=== PATIENT | male | born 1950 | race Caucasian/White ===

== ENCOUNTER 2022-05-16 10:22 | Emergency (ER) | payer MEDICARE, OTHER ==
[2022-05-16] MEDS ORDERED: Sodium Chloride 0.9% 10 ML Syringe FLUSH PRN (10:30)
[2022-05-16] MEDS ORDERED: Diltiazem 25 MG/5 ML SDV IVPUSH ONE ×2 (10:34→11:06)
[2022-05-16 11:02] LABS: ESTIMATED GFR 73 mL/min (>60)
[2022-05-16] MEDS ORDERED: Metoprolol Tartrate 50 MG Tab PO ONE (11:10)
[2022-05-16] MEDS ORDERED: Metoprolol Tartrate 25 MG Tab ONE (11:28)
[2022-05-16] MEDS ORDERED: Metoprolol Tartrate 25 MG Tab PO ONE (11:32)
== END 2022-05-16 12:50 | disposition home or self-care (01) ==
LOC: FB.ED 10:22
DX: I48.91 Unspecified atrial fibrillation (principal); I50.9 Heart failure, unspecified; Z79.899 Other long term (current) drug therapy
CPT/HCPCS: 36415; 80053; 83880; 84443; 84484; 85025; 85610; 85730; 96374; 99285; A9270; J3490; 99283